=== PATIENT | female | born 1980 | race Caucasian/White ===

== ENCOUNTER 2020-07-26 08:45 | Inpatient (IN) | payer OTHER ==
[~2020-07-26] VITALS: Ht 165.1 cm; Wt 72.6 kg
[2020-08-03] MEDS ORDERED: FOLIC ACID1 MG PO (08:30)
[2020-08-03] MEDS ORDERED: VITAMIN B-650 M1 PO (08:31)
[2020-08-03] MEDS ORDERED: DIPHENHYDR50 MG/1 M1 (08:31)
[2020-08-03] MEDS ORDERED: FERROUS SULFAT325 MG PO (08:31)
[2020-08-03] MEDS ORDERED: INFED50 MG/ML (08:32)
== END 2020-08-05 09:24 | disposition home or self-care (01) | DRG 330 ==
LOC: OB/GYN 08-03 05:52 → O/R 08-03 05:52 → SURH 08-03 08:45 → SURG 08-03 11:49 → OB/GYN 08-03 13:29 → O/R 08-03 13:52 → OB/GYN 08-03 16:38
PROVIDERS: Obstetrics & Gynecology Gynecology; ADMIT Surgery; ATTEND Surgery
PROC: 0UT9FZZ Resection of Uterus, Via Natural or Artificial Opening With Percutaneous Endoscopic Assistance (ICD-10-PCS; 2020-08-03)
PROC: 0UT2FZZ Resection of Bilateral Ovaries, Via Natural or Artificial Opening With Percutaneous Endoscopic Assistance (ICD-10-PCS; 2020-08-03)
PROC: 0UT7FZZ Resection of Bilateral Fallopian Tubes, Via Natural or Artificial Opening With Percutaneous Endoscopic Assistance (ICD-10-PCS; 2020-08-03)
PROC: 0DJD8ZZ Inspection of Lower Intestinal Tract, Via Natural or Artificial Opening Endoscopic (ICD-10-PCS; 2020-08-03)
PROC: 0DQN4ZZ Repair Sigmoid Colon, Percutaneous Endoscopic Approach (ICD-10-PCS; principal; 2020-08-03 09:15)
PROC: 0DNN4ZZ Release Sigmoid Colon, Percutaneous Endoscopic Approach (ICD-10-PCS; 2020-08-03 09:15)
DX: N80.5 Endometriosis of intestine (principal); K56.51 Intestinal adhesions [bands], with partial obstruction; N72 Inflammatory disease of cervix uteri; D25.0 Submucous leiomyoma of uterus; N73.6 Female pelvic peritoneal adhesions (postinfective)

== ENCOUNTER 2020-08-02 06:45 | Day surgery (SDC) | payer OTHER ==
[2020-08-03] MEDS ORDERED: FOLIC ACID1 MG PO (08:30)
[2020-08-03] MEDS ORDERED: FERROUS SULFAT325 MG PO (08:31)
[2020-08-03] MEDS ORDERED: VITAMIN B-650 M1 PO (08:31)
[2020-08-03] MEDS ORDERED: DIPHENHYDR50 MG/1 M1 (08:31)
[2020-08-03] MEDS ORDERED: INFED50 MG/ML (08:32)
== END 2020-08-02 09:45 | disposition home or self-care (01) ==
LOC: AMB-ENDOS 06:45
PROVIDERS: ATTEND Surgery
DX: K62.89 Other specified diseases of anus and rectum (principal); Z12.11 Encounter for screening for malignant neoplasm of colon

== ENCOUNTER 2023-10-29 07:10 | Day surgery (SDC) | payer OTHER ==
[2023-10-22 09:52] LABS: PH,URINE 5.5 (5.0-8.0); URINE APPEARANCE Clear; URINE BILIRRUBIN Negative (NEGATIVE); URINE BLOOD Trace; URINE COLOR Yellow; URINE GLUCOSE Negative (NEGATIVE); URINE LEUKOCYTE Negative; URINE NITRATE Negative; URINE PROTEIN Negative (NEGATIVE); URINE UROBILINOGEN 0.2 E.U./dl
[2023-10-22 09:53] LABS: URINE BACTERIA 133.5 uL (0.0-1933); URINE RBC 19.1 uL (0.0-20.8); URINE WBC 1.8 uL (0.0-23.2)
[2023-10-22 09:57] LABS: HEMATOCRIT 39.7 % (36.0-45.00); HEMOGLOBIN 13.5 g/dL (12.0-15.00); PLATELET COUNT 262 K/uL (150-450); RED BLOOD COUNT 4.36 M/uL (4.00-6.00)
[2023-10-22 10:29] LABS: INR 1.01; PARTIAL THROMBOPLASTIN TIME 30.8 SECONDS (22.0-34.0); PROTHROMBIN TIME 10.6 SECONDS (9.0-11.5)
[2023-10-22 10:35] LABS: BILIRUBIN TOTAL 0.57 mg/dL (0.3-1.2); CALCIUM 9.2 mg/dL (8.5-10.1); CREATININE SERUM 0.92 mg/dL (0.55-1.02); GFR 66.31; GLOBULINA 3.4 G/DL (2.4-3.5); POTASSIUM 4.2 mEq/L (3.5-5.1); TOTAL PROTEIN 7.4 gm/dL (6.4-8.2)
[~2023-10-29 07:10] MED LIST: DIPHENHYDR50 MG/1 M1; FERROUS SULFAT325 MG PO; FOLIC ACID1 MG PO; INFED50 MG/ML; VITAMIN B-650 M1 PO
== END 2023-10-29 16:42 | disposition home or self-care (01) ==
LOC: CIR.AMB 07:10
PROVIDERS: ATTEND Orthopaedic Surgery Hand Surgery
DX: M65.331 Trigger finger, right middle finger (principal); M65.341 Trigger finger, right ring finger; Z20.822 Contact with and (suspected) exposure to COVID-19; E11.9 Type 2 diabetes mellitus without complications; E78.00 Pure hypercholesterolemia, unspecified; E78.3 Hyperchylomicronemia; I10 Essential (primary) hypertension